=== PATIENT | male | born 1960 | race Caucasian/White ===

== ENCOUNTER 2024-01-26 08:58 | Emergency (ER) | payer OTHER, SELFPAY ==
[2024-01-26 09:11] VITALS: BP 132/78
[2024-01-26 09:12] VITALS: BMI 23.2
--- NOTE | 2024-01-26 09:12 | ED.GENMED ---
History of Present Illness
General
Chief Complaint: Seizure
Source: patient, records and ambulance crew
Time Seen by Provider: 01/26/24 09:02
Travel History
Have you had any contact with someone who has COVID-19?: No
Do you have any symptoms of coronavirus? Fever > 100 degrees, chills, cough, shortness of breath, sore throat, loss of taste or smell, muscle aches, or headache?: No
History of Present Illness
History of Present Illness:
This patient is a very pleasant 63-year-old male presents emergency department after suspected seizure. He has a history of seizure disorder. He reportedly was found on the floor next to his bed confused with urinary incontinence and mild hypoxia.
Upon EMS arrival, patient was awake, pulse ox normal, systolic blood pressure 150s heart rate of 80s with a blood sugar 142. He has been oriented and asymptomatic on transport. Here in the ER, patient is very pleasant, making jokes with me. He
denies headache, numbness, tingling, focal weakness, chest pain, dyspnea. He says he remembers having breakfast this morning describes what he ate. He says that his next memory is being on the floor after having a seizure. He denies preceding
symptoms to this. He is unclear if he took his morning medications today. He denies abdominal pain, visual changes, back pain. When asked about neck pain, he states that his neck does bother him a little bit just to the left of the midline. No
other symptoms.
Past History
Past History
ED Past Medical History: Seizures, Psychiatric and Other (High blood pressure, high cholesterol, TBI, neurogenic bladder with urinary incontinence)
ED Past Surgical History: Brain and Other (Right-sided CEA June 2021)
Social History
Tobacco: Non-smoker
Alcohol: None
Drug: None
Living: care home
Phy Exam
Physical Exam
Physical Exam:
GENERAL: Alert , in no apparent distress
EYE: pupils equal and reactive, no photophobia, EOMI, no nystagmus
NECK: Supple, no significant adenopathy, no midline ttp.
ENT: o/p clr, mmm.
HEAD: there is a very small 1 mm superficial abrasion noted top of head, otherwise no head/facial/neck injury noted on exam, no graham, no raccoon. 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
CARDIAC: Regular rate and rhythm .
LUNGS: Clear breath sounds bilaterally, no acute respiratory distress, no wheezes/rales/rhonchi
ABDOMEN: Soft, without focal tenderness, no r/g, no cvat
NEUROLOGICAL: Alert and oriented, no focal neuro deficits, motor 5/5 ue=le, sens intact, cn 2-12 intact, f to n nl
SKIN: Warm and dry, skin intact.
MUSCULOSKELETAL: No edema, well perfused.
PSYCH: Normal and appropriate interaction.
Course
Orders/Labs/Results
Orders:
Orders
01/26/24 09:03
Cardiac Monitoring- Treatment ONCE
IV Insert/Care/Rem.- Treatment PRN
01/26/24 09:07
Complete Blood Count/With Diff Urgent
Comprehensive Metabolic Panel Urgent
Dilantin Urgent
01/26/24 09:11
CT Cervical Spine W/o Iv Contr Urgent
Comment:
Reason For Exam: fall, neck pain
CT Head W/o Iv Contrast Urgent
Comment:
Reason For Exam: sz, fall, plavix/asa
Abnormal Lab Results
01/26/24
09:07
Absolute Lymphs (auto) 0.7 L 10^3/uL
(1.2-3.4)
Neutrophils % 75.4 H %
(42.2-75.2)
Lymphocytes % 13.4 L %
(20.5-51.1)
Carbon Dioxide 21 L mmol/L
(22-30)
Creatinine 0.6 L mg/dL
(0.7-1.3)
Glucose 115 H mg/dl
(70-99)
01/26/24 09:07
01/26/24 09:07
Vital Signs
Initial and Last Documented VS:
Initial Vital Signs
Temp Pulse Resp BP Pulse Ox
97.7 F 85 20 132/78 96
01/26/24 09:11 01/26/24 09:11 01/26/24 09:11 01/26/24 09:11 01/26/24 09:11
Last Documented Vital Signs
Temp Pulse Resp BP Pulse Ox
97.7 F 71 20 106/53 97
01/26/24 09:11 01/26/24 11:00 01/26/24 11:00 01/26/24 11:00 01/26/24 11:00
*Critical Care Note
Total Time (30-74mins, 75-104mins- exclusive of procedures): Not Applicable
Update Note
Update Note:
Patient presents to the Emergency Department with ___suspected seizure
Number and Complexity of Problems Addressed at the Encounter
� Chronic conditions affecting care: hx sz d/o
� Acute Exacerbation and/or Progression of Chronic Illness:
� Differential Diagnosis includes: but not limited to sz, fall (without sz) out of bed, electroylyte disturbance, etc.
Amount and/or Complexity of Data to be Reviewed and Analyzed
� I performed an independent evaluation of and my interpretation is:
EKG:
CT:head/nck nad
Xrays:
Laboratory Studies:dilantin 11
Other:
� Review of other/old records reveals: R CEA 2020, admitted for knee surgery and put on warfarin at that time, no longer takes. [facility] records list dilantin,plavix, asa as particularly pertinent meds he is on.
� Clinical information was obtained by an independent historian:EMS
� Prescriptions/Medications Considered but not given:
� Further testing considered but not performed:
Risk of Complications and/or Morbidity or Mortality of Patient Management
� Social determinants of health affecting care:
� Discussion with other providers (PCP, Hospitalists, Consultants, etc):
� Escalation of care including admission/observation vs risk of discharge considered:case d/w [facility] (kenneth crowe [employer]), aware of hx/phys here, chart there reviewed by her, hx of dilantin toxicity, his level has been in 30's
in past...would recommend increase dosage to 200 mg every morning and every afternoon, extended release, and recommend recheck level within a week or so. This was communicated to patient as well as ED RN who will give report to facility RN.
ED Attending Note
-
Portions of this chart may have been created with voice recognition software.� Occasional wrong word or��sound alike� substitutions may have occurred due to the inherent limitations of voice recognition software.
Discharge Plan
Departure
Patient Disposition: Home (Routine Discharge)
Date of Disposition: 01/26/24
Time of Disposition: 10:45
Patient with high blood pressure during this ER visit?: Yes
Condition: Good
Discharge Problem:
(suspected) seizure
Instructions: Seizures, Adult (DC), BLOOD PRESSURE
Prescriptions:
No Action
atorvastatin 80 mg Tablet
80 mg PO DAILY
acetaminophen [Tylenol] 325 mg Tablet
650 mg PO Q4H PRN (Reason: temp>100F/mild pain)
ondansetron HCl [Zofran] 4 mg Tablet
4 mg PO Q6H PRN (Reason: nausea/vomiting)
loperamide [Imodium A-D] 2 mg Tablet
2 mg PO DAILYPRN PRN (Reason: loose stools)
cyanocobalamin (vitamin B-12) 1,000 mcg Tablet
1,000 mcg PO DAILY
phenytoin sodium extended 100 mg Capsule
100 mg PO TID
clopidogrel 75 mg Tablet
75 mg PO DAILY
aspirin 81 mg Tablet,Delayed Release (Dr/Ec)
81 mg PO DAILY
pantoprazole [Protonix] 20 mg Tablet,Delayed Release (Dr/Ec)
20 mg PO DAILY
magnesium hydroxide [Milk of Magnesia] 400 mg/5 mL Suspension
30 ml PO HSPRN PRN (Reason: if no BM in 3 days)
bisacodyl 10 mg Suppository
10 mg KS DAILY PRN (Reason: if no results for MOM)
Fleet Enema 19-7 gram/118 mL Enema
118 ml KS DAILYPRN PRN (Reason: if no BM after dulcolax)
melatonin 5 mg Tablet
5 mg PO HS PRN (Reason: sleep)
Referrals:
Morteza Douglas MD [Family Provider] -
Activity Restrictions/Additional Instructions:
IF YOU DEVELOP ANOTHER SEIZURE, FEVER, VOMITING, SEVERE HEADACHE, NUMBNESS, OR OTHER WORRISOME SIGNS, GO TO THE ER IMMEDIATELY!
YOU SHOULD INCREASE YOUR DILANTIN EXTENDED RELEASE TO 200 MG EVERY AM AND PM, FOR A TOTAL OF 4OO MG PER DAY. MAKE AN APPT WITH [facility] FOR FOLLOW UP WITHIN THE NEXT WEEK. YOU SHOULD ALSO HAVE YOUR DILANTIN LEVEL CHECKED WITHIN A WEEK.
Interventions
Interventions:
*Risk Screen - Suicide Last Done: 01/26/24 09:13
*General Assessment Last Done: 01/26/24 09:13
*Neglect/Abuse Screening Last Done: 01/26/24 09:13
ED- Fall Risk Assessment Last Done: 01/26/24 09:17
*ED COVID-19 Vaccine History Last Done: 01/26/24 09:13
*Nursing Disposition Last Done: 01/26/24 12:23
ED- Cardiac Assessment Last Done: 01/26/24 09:17
ED- Neurological Assessment Last Done: 01/26/24 09:17
ED- Pulmonary Assessment Last Done: 01/26/24 09:17
Discharge Date and Time
Discharge Date/Time: 01/26/24 12:24
[2024-01-26 09:21] LABS: % Basophils 0.6 % (0-2); % Eosinophils 2.6 % (0-6); % Immature Granulocytes 0.2 % (0-0.5); % Lymphocytes 13.4 % (20.5-51.1); % Monocytes 7.8 % (1.7-9.3); % Neutrophils 75.4 % (42.2-75.2); Absolute Eosinophils 0.1 10^3/uL (0-0.7); Absolute Lymphocytes 0.7 10^3/uL (1.2-3.4); Absolute Monocytes 0.4 10^3/uL (0.1-0.6); Absolute Neutrophils 4.1 10^3/uL (1.4-6.5); Hematocrit 42.7 % (39.0-52.0); Hemoglobin 14.7 g/dL (13.0-18.0); Mean Corp Hgb Conc. 34.4 g/dL (33.0-37.0); Mean Corpuscular Hgb 30.9 pg (27.0-31.0); Mean Corpuscular Volume 89.7 fL (80.0-94.0); Mean Platelet Volume 10.4 fL (7.4-10.4); Nucleated Red Blood Cells % 0 % (-); Platelet Count 147 10^3/uL (130-400); Red Blood Cell Count 4.76 10^6/uL (4.70-6.10); Red Cell Dist. Width 13.2 % (11.5-14.5); White Blood Cell Count 5.4 10^3/uL (4.8-10.8)
[2024-01-26 09:39] LABS: ALT (SGPT) 37 U/L (0-50); AST (SGOT) 47 U/L (17-59); Albumin 4.2 g/dl (3.5-5.0); Alkaline Phosphatase 110 U/L (38-126); Blood Urea Nitrogen 12 mg/dl (9-20); Calcium 8.9 mg/dl (8.4-10.2); Carbon Dioxide 21 mmol/L (22-30); Chloride 105 mmol/L (98-107); Estimated Creatinine Clearance > 125 ml/min; Glucose 115 mg/dl (70-99); Potassium 4.1 mmol/L (3.5-5.1); Sodium 137 mmol/L (135-145); Total Bilirubin 0.4 mg/dl (0.2-1.3); Total Protein 7.5 g/dl (6.3-8.2); eGFR > 60.00
[2024-01-26 09:43] LABS: Dilantin 11.6 ug/ml (10-20)
[2024-01-26 10:00] VITALS: BP 124/74
--- NOTE | 2024-01-26 10:56 | EDRN ---
Attempting to call report to Manisha Frazier at this time. [facility] Rn is arranging transportation at this time.
[2024-01-26 11:00] VITALS: BP 106/53
--- NOTE | 2024-01-26 11:01 | EDRN ---
Report called to Pam Moreno LPN at this time. Dilantin increase stressed in report (increased from 100 mg BID to 200 mg BID).
--- NOTE | 2024-01-26 11:28 | EDRN ---
Abrasion on top of head washed w/ saline and then double antibiotic ointment to area,.
--- NOTE | 2024-01-26 11:29 | EDRN ---
Pt is awaiting [facility] at this time, scheduled for 12 noon.
== END 2024-01-26 12:24 | disposition home or self-care (01) ==
LOC: EMR 08:58
PROVIDERS: EMERGENCY PHYSICIAN Emergency Medicine; FAMILY PHYSICIAN Internal Medicine
DX: R56.9 Unspecified convulsions (principal); I10 Essential (primary) hypertension
CPT/HCPCS: 99284; 70450; 72125; 80053; 80185; 85025

== ENCOUNTER → 2024-09-12 09:32 | Outpatient (REF) | payer OTHER, SELFPAY | LOC: RAD 09:32 | PROVIDERS: ATTENDING PHYSICIAN Surgery Vascular Surgery; PRIMARYCARE PHYSICIAN Family Medicine | DX: I65.23 Occlusion and stenosis of bilateral carotid arteries (principal); I73.9 Peripheral vascular disease, unspecified | CPT/HCPCS: 93880; 93922; 93925 ==

== ENCOUNTER → 2025-03-21 12:14 | Outpatient (REF) | payer OTHER, SELFPAY | LOC: DHVS 12:14 | PROVIDERS: ATTENDING PHYSICIAN Registered Nurse | DX: I73.9 Peripheral vascular disease, unspecified (principal) | CPT/HCPCS: 93922; 93925 ==

== ENCOUNTER → 2025-11-03 07:42 | Outpatient (REF) | payer OTHER, SELFPAY | LOC: RAD 07:42 | PROVIDERS: ATTENDING PHYSICIAN Registered Nurse; FAMILY PHYSICIAN Internal Medicine | DX: I73.9 Peripheral vascular disease, unspecified (principal); I65.23 Occlusion and stenosis of bilateral carotid arteries | CPT/HCPCS: 93880; 93922; 93925 ==